=== PATIENT | male | born 1945 | race Caucasian/White ===

== ENCOUNTER → 2016-09-27 | Outpatient (CLI) | payer OTHER ==
[~2016-09-27] VITALS: Ht 172.7 cm; Wt 111.0 kg
[~2016-09-27] MED LIST: FLOMAX 0.40.4 MG/CAP PO; HCTZ 25MG TAB25 MG PO; MOBIC15 MG PO
== END ==
LOC: COL.CARD 10:01
DX: Z53.9 Procedure and treatment not carried out, unspecified reason (principal)

== ENCOUNTER → 2016-10-04 | Outpatient (CLI) | payer OTHER ==
[~2016-10-04] VITALS: Ht 172.7 cm; Wt 114.0 kg
[2016-10-04 07:25] VITALS: BP 155/87; PULSE 52
[2016-10-04 09:00] VITALS: BP 148/66; PULSE 51
[2016-10-04 09:03] VITALS: BP 1711/69; PULSE 73
[2016-10-04 09:05] VITALS: BP 156/83; PULSE 71
[2016-10-04 09:06] VITALS: BP 143/79; PULSE 66
== END ==
LOC: COL.CARD 07:11
DX: R07.89 Other chest pain (principal); R06.09 Other forms of dyspnea; F17.200 Nicotine dependence, unspecified, uncomplicated
CPT/HCPCS: A9502; J2785

== ENCOUNTER 2019-06-02 05:33 | Day surgery (SDC) | payer MEDICARE ==
[~2019-06-02] VITALS: Ht 172.7 cm; Wt 112.8 kg
[2019-06-02] VITALS (13 sets, daily range): BP systolic 119–177; BP diastolic 70–92; PULSE 48–54; TEMP 97.1
[~2019-06-02 05:33] MED LIST changes: +ASPIRIN 81M81 MG/TA2 PO; +BRILINTA90 MG PO; +IMDUR 30MG30 MG/TAB PO; +LIPITOR 80MG80 MG PO; +NITROSTAT0.4 MG/TAB SL; +NORVASC 5MG5 MG/TAB PO; +PRINZIDE 12.5 M1 TA1 PO; +PROTONIX 40MG T40 MG PO
[2019-06-02 06:38] LABS: HEMOGLOBIN 14.8 g/dl (13.5-18.0); MEAN CELL VOLUME 88 fl (80.0-100.0); MEAN CORPUSCULAR HEMOGLOBIN 30 pg (27.0-31.0); MEAN CORPUSCULAR HGB CONC 34 g/dl (33.0-37.0); MEAN PLATELET VOLUME 9.8 fl (7.4-10.4); PLATELET COUNT 230 K/mm3 (130-400)
[2019-06-02] MEDS ORDERED: LIPITOR 80MG80 MG PO (06:38)
[2019-06-02] MEDS ORDERED: IMDUR 30MG30 MG/TAB PO (06:39)
[2019-06-02] MEDS ORDERED: K-DUR20 MEQ PO (06:40)
[2019-06-02] MEDS ORDERED: LOPRESSOR 550 MG/TAB PO (06:41)
[2019-06-02] MEDS ORDERED: SENNA-LAX8.6 MG PO (06:42)
[2019-06-02] MEDS ORDERED: LASIX 40MG TABL40 MG PO (06:42)
[2019-06-02 06:51] LABS: INR 1.1 (0.8-3.0); PROTHROMBIN TIME 12.5 SECONDS (9.7-12.8)
[2019-06-02 06:53] LABS: CREATININE, serum 0.71 (0.66-1.25); POTASSIUM 4.6 mmol/L (3.4-5.0)
--- NOTE | 2019-06-02 07:33 | NUR ---
Initial visit; Patient and his thanked Consumer Analyst for looking in on Vin, offering encouragement and prayer prior to his surgical procedure.
--- NOTE | 2019-06-02 08:47 | NUR ---
SEE MERGE DOCUMENTATION FOR MEDICATION ADMINISTRATION TIMES AND INTRA/POST PROCEDURE SEDATION ASSESSMENTS.
[2019-06-02] MEDS ORDERED: NORVASC 5MG5 MG/TAB PO (09:49)
[2019-06-02] MEDS ORDERED: ZEBETA 5MG5 MG PO (09:50)
--- NOTE | 2019-06-02 10:00 | NUR ---
PT back from supervisor laboratory animal facility, bs report received from Sohan COLON. Pt accompanied by and grandaulolater. pt is awake and alert, p,w,d, appears sinus philipp 40's on monitor. pulses intact, groin soft, no hematoma. wctm
[2019-06-02] MEDS ORDERED: PLAVIX 75MG TAB75 MG PO (11:43)
--- NOTE | 2019-06-02 11:48 | NUR ---
PT WAS ABLE TO USE URINAL BY ROLLING TO RIGHT SIDE. PT DOES HAVE SOME RESIDUAL BLOOD FROM PROCEDURE BTW HIS LEGS, THIS WAS CLEANED UP. GROIN REMAINS SOFT, DRESSING CLEAN AND DRY, PULSES REMAIN INTACT.
--- NOTE | 2019-06-02 15:00 | NUR ---
REVIEWED DC, F/U AND RX INSTRUCTIONS WITH PATIENT AND , AND DAUGHTER OVER THE PAST HOUR. THEY VERBALIZE UNDERSTANDING OF INSTRUCTIONS. PT IS AMBULATORY IN ROOM WITH STEADY GAIT, ABLE TO DRINK FLUIDS WITH NO PROBLEM, NO TROUBLE VOIDING. GROIN REMAINS SOFT WITHOUT BLEEDING, BRUISING OR HEMATOMA. CMS TO EXTREMITIES IS UNCHANGED. SALINE LOCK TO LFA DC'D CATH INTACT. ESCORTED PT TO EXIT VIA WHEELCHAIR.
== END 2019-06-02 15:15 | disposition home or self-care (01) ==
LOC: COL.CAR 05:33
PROVIDERS: Internal Medicine Cardiovascular Disease
DX: I25.10 Atherosclerotic heart disease of native coronary artery without angina pectoris (principal); I10 Essential (primary) hypertension; J44.9 Chronic obstructive pulmonary disease, unspecified; E78.5 Hyperlipidemia, unspecified; Z95.1 Presence of aortocoronary bypass graft; G47.33 Obstructive sleep apnea (adult) (pediatric); E66.9 Obesity, unspecified; Z90.49 Acquired absence of other specified parts of digestive tract; Z79.02 Long term (current) use of antithrombotics/antiplatelets; Z79.82 Long term (current) use of aspirin; Z87.891 Personal history of nicotine dependence; Z82.49 Family history of ischemic heart disease and other diseases of the circulatory system; Z91.030 Bee allergy status
CPT/HCPCS: C1760; C1894; J1644; J2250; J3010; Q9967

== ENCOUNTER → 2019-10-05 | Outpatient (CLI) | payer MEDICARE ==
[~2019-10-05] MED LIST changes: +K-DUR20 MEQ PO; +LASIX 40MG TABL40 MG PO; +LOPRESSOR 550 MG/TAB PO; +PLAVIX 75MG TAB75 MG PO; +SENNA-LAX8.6 MG PO; +ZEBETA 5MG5 MG PO
== END ==
LOC: COL.RAD 12:25
DX: R07.89 Other chest pain (principal); Z90.49 Acquired absence of other specified parts of digestive tract; Z98.890 Other specified postprocedural states

== ENCOUNTER 2020-11-15 07:51 | Day surgery (SDC) | payer MEDICARE ==
[~2020-11-15] VITALS: Ht 172.7 cm; Wt 123.5 kg
[2020-11-15] VITALS (413 sets, daily range): BP systolic 109–138; BP diastolic 43–72; PULSE 42–48; TEMP 97.6–98; O2SAT 80–100
[~2020-11-15 07:51] MED LIST changes: +IMDUR 60MG60 MG/TAB PO
[2020-11-15 09:05] LABS: HEMATOCRIT 42.3 % (42.0-52.0); HEMOGLOBIN 14.6 g/dl (13.5-18.0); MEAN CELL VOLUME 88 fl (80.0-100.0); MEAN CORPUSCULAR HEMOGLOBIN 30 pg (27.0-31.0); MEAN CORPUSCULAR HGB CONC 35 g/dl (33.0-37.0); MEAN PLATELET VOLUME 9.2 fl (7.4-10.4); PLATELET COUNT 193 K/mm3 (130-400); REDCELL DISTRIBUTION WIDTH-CV 13.5 % (11.5-14.5)
[2020-11-15 09:12] LABS: INR 1.1 (0.8-3.0); PROTHROMBIN TIME 12.7 SECONDS (9.7-12.8)
[2020-11-15 09:14] LABS: PARTIAL THROMBOPLASTIN TIME 33.8 SECONDS (26.0-37.0)
[2020-11-15 09:15] LABS: CREATININE, serum 0.78 (0.66-1.25); POTASSIUM 4.2 mmol/L (3.4-5.0)
[2020-11-15] MEDS ORDERED: ZEBETA 5MG5 MG PO (09:27)
[2020-11-15] MEDS ORDERED: RANEXA 500MG T500 MG PO (09:29)
[2020-11-15] MEDS ORDERED: MIRALAX PA17 GM/Dose PO (09:29)
--- NOTE | 2020-11-15 11:14 | NUR ---
RECEIVED REPORT FROM DARLENE STARR IN VICE PRESIDENT OF ENGINEERING. AWAITING ARRIVAL OF PT TO ICU 2.
--- NOTE | 2020-11-15 11:18 | NUR ---
PT ARRIVES TO ICU 2. PLACED ON BEDSIDE CONTINUOUS MONITOR. PT DENIES ANY CP/PRESSURE. CALL LIGHT EDUCATION GIVEN, VERBALIZED UNDERSTANDING. EXPLAINED TO PT ABOU TFLAT TIME, VERBALIZED UNDERSTANDING.RT FEMORAL GROIN SITE WITH GAUZE AND TEGADERM DRESSING, C/D/I. AT BEDSIDE. PT ON RA. VSS.
--- NOTE | 2020-11-15 20:15 | NUR ---
RECEIVED REPORT FROM DARLENE PLAZA. PT RESTING COMFORTABLY IN BED WITH EYES OPEN. CALL LIGHT WITHIN REACH. VSS. IV IN PLACE WITH 1/2 NS RUNNING.
[2020-11-16] VITALS (263 sets, daily range): BP systolic 102–118; BP diastolic 61–65; PULSE 48–50; TEMP 97; O2SAT 80–98
[2020-11-16 05:24] LABS: BASO % 0.5 % (0.0-2.0); EOS # 0.1 (0.0-0.7); EOS % 1.7 % (0-4.0); GRAN % 66.2 % (42.2-75.2); HEMOGLOBIN 14.8 g/dl (13.5-18.0); LYMPH # 1.3 (1.2-3.4); LYMPH % 20.9 % (20.0-51.0); MEAN CELL VOLUME 88 fl (80.0-100.0); MEAN CORPUSCULAR HEMOGLOBIN 30 pg (27.0-31.0); MEAN CORPUSCULAR HGB CONC 34 g/dl (33.0-37.0); MEAN PLATELET VOLUME 9.5 fl (7.4-10.4); MONO # 0.6 (0.1-0.6); MONO % 10.4 % (1.7-9.3); PLATELET COUNT 182 K/mm3 (130-400); RED BLOOD COUNT 4.89 M/mm3 (4.20-5.60); REDCELL DISTRIBUTION WIDTH-CV 13.3 % (11.5-14.5)
[2020-11-16 05:34] LABS: CALCIUM 8.5 mg/dL (8.4-10.2); CREATININE, serum 0.81 (0.66-1.25); POTASSIUM 4.1 mmol/L (3.4-5.0)
--- NOTE | 2020-11-16 09:49 | NUR ---
Initial visit; Patient and his thanked Child Welfare Caseworker for looking in on him this morning and wishing him well and offering God's blessings.
--- NOTE | 2020-11-16 11:55 | NUR ---
DISCHARGE INFORMATION, PACKET AND FOLLOW UP APPTS REVIEWED WITH PATIENT AND HIS . ALL QUESTIONS REVIEWED. POST CATH INSTRUCTIONS REVEIEWED. THEY BOTH VERBALIZE UNDERSTANDING. PATIENT TAKEN OUT TO PATIENT ENTRANCE AND ASSISTED INTO VEHICLE WITH HIS TO DRIVE THEM HOME.
--- NOTE | 2020-11-16 13:03 | NUR ---
The patient discharged before this Tire Trucker could complete intake.
== END 2020-11-16 11:45 | disposition home or self-care (01) ==
LOC: COL.CAR 07:51 → ICU 11:20 → COL.CAR 11:20 → ICU 11-16 11:45 → COL.CAR 11-16 11:45
PROVIDERS: Internal Medicine Cardiovascular Disease
DX: I25.10 Atherosclerotic heart disease of native coronary artery without angina pectoris (principal); I10 Essential (primary) hypertension; J44.9 Chronic obstructive pulmonary disease, unspecified; G47.33 Obstructive sleep apnea (adult) (pediatric); C76.0 Malignant neoplasm of head, face and neck; E66.9 Obesity, unspecified; Z68.41 Body mass index [BMI] 40.0-44.9, adult; Z20.822 Contact with and (suspected) exposure to COVID-19; Z87.891 Personal history of nicotine dependence; Z95.1 Presence of aortocoronary bypass graft; Z80.0 Family history of malignant neoplasm of digestive organs; Z79.899 Other long term (current) drug therapy
CPT/HCPCS: OP; C1725; C1760; C1769; C1876; C1887; C1894; J0583; J1644; J2250; J2405; J3010

== ENCOUNTER 2020-12-26 12:15 | Emergency (ER) | payer MEDICARE ==
[~2020-12-26] VITALS: Ht 172.7 cm; Wt 123.2 kg
[~2020-12-26 12:15] MED LIST changes: +MIRALAX PA17 GM/Dose PO; +RANEXA 500MG T500 MG PO
[2020-12-26 12:27] VITALS: TEMP 98.3
[2020-12-26 14:00] VITALS: BP 118/74; PULSE 78
== END 2020-12-26 14:00 | disposition home or self-care (01) ==
LOC: COL.ER 12:15
DX: M25.561 Pain in right knee (principal); M17.12 Unilateral primary osteoarthritis, left knee; E11.9 Type 2 diabetes mellitus without complications; I10 Essential (primary) hypertension; I25.10 Atherosclerotic heart disease of native coronary artery without angina pectoris; J44.9 Chronic obstructive pulmonary disease, unspecified; Z87.891 Personal history of nicotine dependence; Z79.82 Long term (current) use of aspirin; Z79.02 Long term (current) use of antithrombotics/antiplatelets

== ENCOUNTER 2021-08-28 09:09 | Day surgery (SDC) | payer MEDICARE ==
[2021-08-28] VITALS (12 sets, daily range): BP systolic 101–128; BP diastolic 59–73; PULSE 46–53; TEMP 97.8
[~2021-08-28] VITALS: Ht 172.8 cm; Wt 114.6 kg
[2021-08-28 09:56] LABS: BASO % 0.5 % (0.0-2.0); EOS # 0.1 K/mm3 (0.0-0.7); EOS % 1.9 % (0.0-4.0); GRAN # 4.2 K/mm3 (1.4-6.5); GRAN % 64.9 % (42.2-75.2); HEMATOCRIT 43.1 % (42.0-52.0); HEMOGLOBIN 14.7 g/dl (13.5-18.0); LYMPH # 1.5 K/mm3 (1.2-3.4); LYMPH % 22.9 % (20.0-51.0); MEAN CELL VOLUME 91 fl (80.0-100.0); MEAN CORPUSCULAR HEMOGLOBIN 31 pg (27-31); MEAN CORPUSCULAR HGB CONC 34 g/dl (33.0-37.0); MEAN PLATELET VOLUME 9.1 fl (7.4-10.4); MONO # 0.6 K/mm3 (0.1-0.6); MONO % 9.5 % (1.7-9.3); PLATELET COUNT 236 K/mm3 (130-400); RED BLOOD COUNT 4.75 M/mm3 (4.20-5.60); REDCELL DISTRIBUTION WIDTH-CV 12.9 % (11.5-14.5)
[2021-08-28 10:08] LABS: INR 1.2 (0.8-3.0); PROTHROMBIN TIME 13.5 SECONDS (9.7-12.8)
[2021-08-28 10:11] LABS: PARTIAL THROMBOPLASTIN TIME 31.2 SECONDS (26.0-37.0)
[2021-08-28 10:14] LABS: CALCIUM 9.3 mg/dL (8.4-10.2); CREATININE, serum 0.81 mg/dL (0.72-1.25); POTASSIUM 4.7 mmol/L (3.5-4.5)
[2021-08-28] MEDS ORDERED: PROAIR HFA0.09 MG/AC IH (10:39)
[2021-08-28] MEDS ORDERED: GOOD NEIGH3.4 GM/Dos PO (10:40)
[2021-08-28] MEDS ORDERED: CRESTOR20 MG PO (10:42)
[2021-08-28] MEDS ORDERED: RANEXA 500MG T500 MG PO (10:42)
[2021-08-28] MEDS ORDERED: SENNA-LAX8.6 MG PO (10:43)
[2021-08-28] MEDS ORDERED: ALLI60 MG PO (10:43)
--- NOTE | 2021-08-28 10:47 | NUR ---
SEE MERGE DOCUMENTATION FOR MEDICATION ADMINISTRATION TIMES AND INTRA/POST PROCEDURE SEDATION ASSESSMENTS.
--- NOTE | 2021-08-28 10:57 | NUR ---
Initial visit; Patient and his thanked Pug Machine Operator for looking in on him and offering comfort and prayer prior to his surgical procedure.
[2021-08-28 15:59] LABS: COLLECTION METHOD CLEAN CATCH
[2021-08-28 16:10] LABS: MUCOUS Present (NOT PRESENT); PH 6 (5-8); SQUAMOUS EPITHELIAL 0-2 /hpf (0-10); URINE APPEARANCE Clear (CLEAR/HAZY); URINE BACTERIA None Seen /hpf (NONE SEEN); URINE BILIRUBIN Negative (NEGATIVE); URINE BLOOD Negative (NEGATIVE); URINE COLOR Yellow (YELLOW); URINE GLUCOSE Negative (NEGATIVE); URINE KETONE Negative (NEGATIVE); URINE LEUKOCYTE ESTERASE Negative (NEGATIVE); URINE NITRATE Negative (NEGATIVE); URINE PROTEIN(semi-quant) Negative (NEGATIVE); URINE RBC 0-2 /hpf (0-2); URINE WBC 0-2 /hpf (0-2)
--- NOTE | 2021-08-28 16:20 | NUR ---
DC instructions were reviewed with pt and . Both expressed understanding. Pt was assisted up to restroom following 4 hr flat time. Dressing to rt groin remains clean, dry and intact and area is soft to palpation after activity. UA collected per orders. CXR also completed as ordered by pt's PCP prior to discharge. He is steady on feet in room. INT DC'd with catheter intact. He is assisted out to 's truck by wheelchair with personal belongings.
== END 2021-08-28 16:50 | disposition home or self-care (01) ==
LOC: COL.CAR 09:09
PROVIDERS: Internal Medicine Cardiovascular Disease
DX: I25.110 Atherosclerotic heart disease of native coronary artery with unstable angina pectoris (principal); I10 Essential (primary) hypertension; G47.33 Obstructive sleep apnea (adult) (pediatric); Z95.1 Presence of aortocoronary bypass graft; Z95.818 Presence of other cardiac implants and grafts
CPT/HCPCS: C1760; C1769; C1894; J1644; J2250; J3010; Q9967

== ENCOUNTER 2021-09-30 17:58 | Emergency (ER) | payer MEDICARE ==
[~2021-09-30] VITALS: Ht 172.7 cm; Wt 118.2 kg
[~2021-09-30 17:58] MED LIST changes: +ALLI60 MG PO; +CRESTOR20 MG PO; +GOOD NEIGH3.4 GM/Dos PO; +PROAIR HFA0.09 MG/AC IH
[2021-09-30 18:12] VITALS: TEMP 98.5
[2021-09-30 19:21] LABS: CALCIUM 8.9 mg/dL (8.4-10.2); CREATININE, serum 0.71 mg/dL (0.72-1.25); POTASSIUM 4.1 mmol/L (3.5-4.5)
[2021-09-30] MEDS ORDERED: PEPCID 20MG TAB20 MG PO (20:05)
[2021-09-30 20:06] VITALS: BP 149/82; PULSE 70
== END 2021-09-30 20:06 | disposition home or self-care (01) ==
LOC: COL.ER 17:58
PROVIDERS: Emergency Medicine
DX: R22.42 Localized swelling, mass and lump, left lower limb (principal); R10.13 Epigastric pain; E11.9 Type 2 diabetes mellitus without complications; I25.10 Atherosclerotic heart disease of native coronary artery without angina pectoris; J44.9 Chronic obstructive pulmonary disease, unspecified; Z79.82 Long term (current) use of aspirin; Z79.02 Long term (current) use of antithrombotics/antiplatelets; Z79.899 Other long term (current) drug therapy
CPT/HCPCS: J1650

== ENCOUNTER 2021-09-30 21:44 | Outpatient (CLI) | payer MEDICARE ==
[~2021-09-30 21:44] MED LIST changes: +PEPCID 20MG TAB20 MG PO
[2021-10-01 17:30] VITALS: BP 127/67; PULSE 71; TEMP 98.4
== END 2021-10-01 ==
LOC: EUO 10-01 17:21
DX: M79.605 Pain in left leg (principal); M79.89 Other specified soft tissue disorders; Z96.652 Presence of left artificial knee joint
CPT/HCPCS: J1650

== ENCOUNTER → 2021-10-02 | Outpatient (CLI) | payer MEDICARE | LOC: COL.VAS 08:19 | DX: M79.89 Other specified soft tissue disorders (principal); M79.605 Pain in left leg ==

== ENCOUNTER 2022-10-06 13:35 | Inpatient (IN) | payer MEDICARE ==
[~2022-10-06] VITALS: Ht 172.7 cm; Wt 112.0 kg
[2022-10-06 14:17] LABS: BASO % 0.2 % (0.0-2.0); EOS % 0.1 % (0.0-4.0); GRAN # 5.5 K/mm3 (1.4-6.5); GRAN % 66.7 % (42.2-75.2); HEMATOCRIT 50.5 % (42.0-52.0); HEMOGLOBIN 17.6 g/dl (13.5-18.0); LYMPH # 1.4 K/mm3 (1.2-3.4); LYMPH % 16.7 % (20.0-51.0); MEAN CELL VOLUME 88 fl (80.0-100.0); MEAN CORPUSCULAR HEMOGLOBIN 31 pg (27-31); MEAN CORPUSCULAR HGB CONC 35 g/dl (33.0-37.0); MEAN PLATELET VOLUME 9.4 fl (7.4-10.4); MONO # 1.3 K/mm3 (0.1-0.6); MONO % 15.9 % (1.7-9.3); PLATELET COUNT 253 K/mm3 (130-400); RED BLOOD COUNT 5.73 M/mm3 (4.20-5.60); REDCELL DISTRIBUTION WIDTH-CV 13.2 % (11.5-14.5)
[2022-10-06 14:36] LABS: ALBUMIN 4.6 gm/dL (3.4-4.8); BILIRUBIN,TOTAL 1.7 mg/dL (0.2-1.2); C-REACTIVE PROTEIN 4.44 mg/dL (0.00-0.50); CALCIUM 9.9 mg/dL (8.4-10.2); CREATININE, serum 0.94 mg/dL (0.72-1.25); POTASSIUM 3.8 mmol/L (3.5-4.5); TOTAL PROTEIN 8.1 gm/dL (6.2-8.1)
[2022-10-06 15:20] LABS: COLLECTION METHOD CLEAN CATCH
[2022-10-06 15:25] LABS: URINE APPEARANCE Clear (CLEAR/HAZY); URINE COLOR Yellow (YELLOW); URINE GLUCOSE Negative (NEGATIVE); URINE PROTEIN(semi-quant) 2+ (NEGATIVE)
[2022-10-06 15:26] LABS: URINE BLOOD Negative (NEGATIVE); URINE KETONE 1+ (NEGATIVE); URINE NITRATE Negative (NEGATIVE)
[2022-10-06 15:34] LABS: MUCOUS Present (NOT PRESENT); URINE BACTERIA None Seen /hpf (NONE SEEN)
[2022-10-06 17:23] VITALS: BP 131/75; PULSE 82; TEMP 98
[2022-10-06] MEDS ORDERED: TYLENOL 325MG325 MG PO (18:02)
[2022-10-06] MEDS ORDERED: FOLIC ACID 11 MG/TA1 PO (18:04)
[2022-10-06] MEDS ORDERED: FERRO-TIME325 MG PO (18:04)
[2022-10-06] MEDS ORDERED: VITAMIN C500 MG PO (18:06)
--- NOTE | 2022-10-06 19:30 | NUR ---
PT IN BED, IS ALERT AND ORIENTED X4. HAS NGT TO RT NARE TO LIS. CLEARISH FLUID IN TUBING. ABD DISTENDED, SOFT, BS HYPOACTIVE. PT DENIES NAUSEA OR PAIN. REPORTS MINIMAL FLATUS. ASSISTED TO BATHROOM, THOUGHT HE NEEDED TO HAVE BM, NO SUCCESS, DID VOID YELLOW URINE. BACK TO BED.
[2022-10-06 19:47] VITALS: BP 154/69; PULSE 84; TEMP 97.7
--- NOTE | 2022-10-06 20:55 | NUR ---
PT REPORTS HE NORMALLY SLEEPS IN A RECLINER AT HOME. ASSISTED TO CHAIR AT BEDSIDE. REPORTS MILD NAUSEA, ZOFRAN GIVEN IV. HAS IVF INFUSING TO RT HAND WITHOUT REDNESS OR SWELLING. CALL LIGHT WITHIN REACH.
--- NOTE | 2022-10-06 23:02 | NUR ---
PT ASKING FOR SOMETHING FOR SLEEP. HES MILDLY UNCOMFORTABLE. DANA KELLOGG ORDERS ONE DOSE OF MORPHINE 2MG, GIVEN AT THIS TIME.
[2022-10-07] VITALS (7 sets, daily range): BP systolic 148–176; BP diastolic 56–85; PULSE 78–96; TEMP 98.1–99.6
--- NOTE | 2022-10-07 03:09 | NUR ---
PT REPORTS MORE ABD PAIN AND NAUSEA, MORPHINE 2MG IVP AND ZOFRAN 4MG IVP GIVEN. PT CURRENTLY IN BED.
--- NOTE | 2022-10-07 06:00 | NUR ---
PT HAS 100CC GREEN EMESIS, RECHECKED NGT PLACEMENT AND CONFIRMED. ASSISTED TO BATHROOM, VOIDS AND BACK TO BED.
[2022-10-07 06:37] LABS: BASO % 0.1 % (0.0-2.0); EOS % 0.1 % (0.0-4.0); GRAN # 5.2 K/mm3 (1.4-6.5); GRAN % 64.1 % (42.2-75.2); HEMOGLOBIN 17.4 g/dl (13.5-18.0); LYMPH # 1.6 K/mm3 (1.2-3.4); MEAN CELL VOLUME 92 fl (80.0-100.0); MEAN CORPUSCULAR HEMOGLOBIN 31 pg (27-31); MEAN CORPUSCULAR HGB CONC 34 g/dl (33.0-37.0); MEAN PLATELET VOLUME 9.4 fl (7.4-10.4); MONO # 1.3 K/mm3 (0.1-0.6); MONO % 15.5 % (1.7-9.3); PLATELET COUNT 221 K/mm3 (130-400); RED BLOOD COUNT 5.68 M/mm3 (4.20-5.60); REDCELL DISTRIBUTION WIDTH-CV 13.5 % (11.5-14.5)
[2022-10-07 06:49] LABS: CALCIUM 9.1 mg/dL (8.4-10.2); CREATININE, serum 0.81 mg/dL (0.72-1.25); POTASSIUM 3.5 mmol/L (3.5-4.5)
--- NOTE | 2022-10-07 07:00 | NUR ---
PT RESTING IN BED. NG TO LIS. PT HAS IVF RUNNING. PT HAS CALL LIGHT WITHIN REACH AND INSTRUCTED TO CALL WTIH ALL NEEDS.
--- NOTE | 2022-10-07 10:39 | NUR ---
SW met with pt to complete intake. Pt reports he lives at home with his , Apurva @ [phone]. Pt reports he is independnet on all ADLS and has CPAP for night. He reports he not complaint with it every night. PCP is [place] and gets medications from [facility]. Pt report she has DPOA-HC and its his . He reports filling one out before his heart surgery. No other needs at this time. SW to await for further recommendations and follow up as needed. DC: Home.
--- NOTE | 2022-10-07 16:40 | NUR ---
1550 PT COMPLAINING OF HICCUPS. PT INSTRUCTED PROBABLY DUE TO NG TUBE. SIPS OF WATER GIVEN AND ZOFRAN GIVEN. 1640 PT COMPLAINING AGAIN OF HICCUPS. CALLED AND NOTIFIED. NO NEW ORDERS RECEIVED.
--- NOTE | 2022-10-07 21:30 | NUR ---
PATIENT IS RESTING IN BED.PATIENT'S IS IN THE ROOM.PATIENT HAS A NASO GASTRIC TUBE ON LOW INTERMITTENT SUCTION.PATIENT DENIES PAIN.PATIENT AND REPORT TO THIS NURSE THAT PATIENT HAD A MODERATE BOWEL MOVEMENT WHICH WAS LOOSE AND SMELLY .THIS NURSE DID NOT SEE IT.PATIENT IS ON IV FLUIDS INFUSING WELL.SAFETY MEASURES IN PLACE.NO OTHER NEEDS AT THIS TIME.
[2022-10-08] VITALS (7 sets, daily range): BP systolic 143–169; BP diastolic 65–80; PULSE 72–85; TEMP 97.6–98.6
--- NOTE | 2022-10-08 03:40 | NUR ---
PATIENT HAD A LARGE BOWEL MOVEMENT.PATIENT DENIES PAIN.PATIENT WANTS TO DRINK AND EAT.PATIENT'S IS IN THE ROOM.NASOGASTRIC TUBE IS ON LOW INTERMITTENT SUCTION THERE IS NO DRAINAGE IN THE CANISTER ITS ID FLUCTUATING IN THE TUBING.
[2022-10-08 06:26] LABS: BASO % 0.4 % (0.0-2.0); EOS % 0.8 % (0.0-4.0); GRAN # 2.9 K/mm3 (1.4-6.5); GRAN % 61.2 % (42.2-75.2); HEMATOCRIT 45.5 % (42.0-52.0); LYMPH # 0.9 K/mm3 (1.2-3.4); LYMPH % 19.4 % (20.0-51.0); MEAN CELL VOLUME 92 fl (80.0-100.0); MEAN CORPUSCULAR HEMOGLOBIN 31 pg (27-31); MEAN CORPUSCULAR HGB CONC 33 g/dl (33.0-37.0); MEAN PLATELET VOLUME 9.8 fl (7.4-10.4); MONO # 0.9 K/mm3 (0.1-0.6); PLATELET COUNT 192 K/mm3 (130-400); RED BLOOD COUNT 4.96 M/mm3 (4.20-5.60); REDCELL DISTRIBUTION WIDTH-CV 13.3 % (11.5-14.5)
[2022-10-08 06:41] LABS: HEMOGLOBIN 15.2 g/dl (13.5-18.0)
[2022-10-08 06:43] LABS: CALCIUM 8.6 mg/dL (8.4-10.2); CREATININE, serum 0.78 mg/dL (0.72-1.25); POTASSIUM 3.3 mmol/L (3.5-4.5)
--- NOTE | 2022-10-08 07:27 | NUR ---
NG TUBE CLAMPED PER ORDERS. SCANT AMT OF DRAINAGE TO CANNISTER THIS AM. PT SITTING UP ON SIDE OF BED VISITING WITH . INSTRUCTION PROVIDED ON ORDERING CLEAR LIQUIDS FOR PT.
--- NOTE | 2022-10-08 08:58 | NUR ---
PT UP TO RECLINER, ADVANCING TO MACHELLE, WILL REVALUATELATER THIS AM TO DC NG TUBE. CURRENTLY CLAMPED.PT LEFT AND WILL RETURN LATER THIS AM.
--- NOTE | 2022-10-08 09:52 | NUR ---
PT HAD EPISODE OF EMESIS. RESTARTED NG TUBE TO LIS. PT NOW NPO AGAIN.
--- NOTE | 2022-10-08 10:34 | NUR ---
AFTER EMESIS AND REATTACHED NG TO; LIS PT HAS SM AMT OF DRAINAGE TO NG CANNISTER. PT REPORTS FEELING SLIGHTLY BETTER.
--- NOTE | 2022-10-08 12:29 | NUR ---
Owner Oral Surgeon spoke with Hospitalist about ordering PT/OT.
--- NOTE | 2022-10-08 16:00 | NUR ---
FLUSHED AND ADVANCED NG TUBE WITH IMMEDIATE RETURN OF 1200 MLS GREEN FLUID. PT REPORTING RELIFE. HOLDING GG PER CARLO GONZALEZ.
--- NOTE | 2022-10-08 21:20 | NUR ---
pt asleep in bed, at bedside. assessment complete. pt denies passing gas and has not had a bm this shift. hypoactive bowel sounds. ng to LIS w green output. vss and tele in place. ns infusing at 75ml/hr in right hand. call light in reach. no needs at this time.
--- NOTE | 2022-10-08 22:56 | NUR ---
NG has had green output of 500cc since 1900. pt denies pain, and nausea/vomiting.
--- NOTE | 2022-10-08 23:17 | NUR ---
spoke to christofer randolph radiology about dr telles's note stating he would like a gastrograffin test this afternoon and follow up with a KUB in the morning. christofer states that we will wait until the morning when a radiologist is in the building.
[2022-10-09] VITALS (12 sets, daily range): BP systolic 102–171; BP diastolic 53–76; PULSE 66–94; TEMP 97.7–98.3
--- NOTE | 2022-10-09 05:45 | NUR ---
a total of 1300cc green output in canister since 190 last night. pt reports feeling "less full". pt felt like he needed to have a bm but was only able to pass gas. denies nausea/vomiting but has occasional hiccups. pt really wanting NG taken out and to be able to drink water and walk the halls. no other needs this morning.
[2022-10-09 09:13] LABS: BASO % 0.2 % (0.0-2.0); EOS % 0.5 % (0.0-4.0); GRAN % 61.3 % (42.2-75.2); HEMATOCRIT 48.3 % (42.0-52.0); HEMOGLOBIN 16.3 g/dl (13.5-18.0); LYMPH # 1.4 K/mm3 (1.2-3.4); MEAN CELL VOLUME 90 fl (80.0-100.0); MEAN CORPUSCULAR HEMOGLOBIN 31 pg (27-31); MEAN CORPUSCULAR HGB CONC 34 g/dl (33.0-37.0); MEAN PLATELET VOLUME 9.4 fl (7.4-10.4); MONO # 1.1 K/mm3 (0.1-0.6); MONO % 16.7 % (1.7-9.3); PLATELET COUNT 235 K/mm3 (130-400); RED BLOOD COUNT 5.34 M/mm3 (4.20-5.60)
[2022-10-09 09:33] LABS: ALBUMIN 3.6 gm/dL (3.4-4.8); CALCIUM 9.3 mg/dL (8.4-10.2); CREATININE, serum 0.8 mg/dL (0.72-1.25); MAGNESIUM 2.2 mg/dL (1.6-2.6); POTASSIUM 3.1 mmol/L (3.5-4.5); TOTAL PROTEIN 6.8 gm/dL (6.2-8.1)
--- NOTE | 2022-10-09 11:19 | NUR ---
Management Lead met with patient and to review discharge plan. Patient plans to go home at time of discharge. PT/OT ordered. Patient to have another procedure today. Discharge Plan: Home
--- NOTE | 2022-10-09 11:45 | NUR ---
PT TO SURGERY AT THIS TIME BY BED WITH JULIANNA.
--- NOTE | 2022-10-09 15:19 | NUR ---
PT TO ROOM 342 PER BED WITH REPORT FROM SLAVA COLON PACU @5858. PT IS A/O X4, LUNGS CTA, BOWEL SOUNDS HYPO. 3 LAP SITES TO LEFT LATERAL ABD CDI WITH SWIFTSET. IV TO PUMP PER ORDERS. NG TUBE TO LIS, GUTHRIE TO DD WITH CLEAR YELLOW URINE PRESENT.
--- NOTE | 2022-10-09 20:00 | NUR ---
Patient A/Ox4, head to toe assessment done, see shift assessment, denies pain at this time, NG to LIS, with schroeder catheter draining well, 3 abdominal lap sites, NPO maintained, denies further needs, call light and personal items within reach, will continue to monitor.
--- NOTE | 2022-10-09 23:38 | NUR ---
Patient watching TV, denies pain or discomfort, NPO maintained, denies further needs, will continue to monitor.
[2022-10-10 03:21] VITALS: BP 141/65; PULSE 60; TEMP 98
[2022-10-10 06:59] LABS: BASO % 0.3 % (0.0-2.0); GRAN # 5.6 K/mm3 (1.4-6.5); GRAN % 75.9 % (42.2-75.2); HEMATOCRIT 48.5 % (42.0-52.0); HEMOGLOBIN 16.7 g/dl (13.5-18.0); LYMPH # 1.1 K/mm3 (1.2-3.4); LYMPH % 14.4 % (20.0-51.0); MEAN CELL VOLUME 89 fl (80.0-100.0); MEAN CORPUSCULAR HEMOGLOBIN 31 pg (27-31); MEAN CORPUSCULAR HGB CONC 34 g/dl (33.0-37.0); MEAN PLATELET VOLUME 9.7 fl (7.4-10.4); MONO # 0.7 K/mm3 (0.1-0.6); PLATELET COUNT 269 K/mm3 (130-400); RED BLOOD COUNT 5.47 M/mm3 (4.20-5.60); REDCELL DISTRIBUTION WIDTH-CV 12.6 % (11.5-14.5)
[2022-10-10 07:10] VITALS: BP 163/72; PULSE 75; TEMP 97.8
[2022-10-10 07:16] LABS: CALCIUM 8.7 mg/dL (8.4-10.2); CREATININE, serum 0.72 mg/dL (0.72-1.25); POTASSIUM 3.8 mmol/L (3.5-4.5)
--- NOTE | 2022-10-10 09:00 | NUR ---
Pt doing okay this morning. Informed him that once Dr Raza comes around, we will see about getting him is routine medications. Pt not having much for complaints of pain. Pts is at bedside. Discussed multiple times about him being NPO at this time
[2022-10-10 10:56] VITALS: BP 152/69; PULSE 65; TEMP 98.2
--- NOTE | 2022-10-10 13:33 | NUR ---
Pt tolerating the clear liquids, taking them slow, only giving him about 120ml at a time. Pt has been up walking in the halls a couple times.
--- NOTE | 2022-10-10 13:38 | NUR ---
Broadcast Engineer attended clinical rounds with the team. Patient is up walking in the halls. Discharge Plan: Home
--- NOTE | 2022-10-10 15:07 | NUR ---
Pt has been up ambulating several times. Pt doing well and is steady on his feet. Pt has become more distended, reports feeling bloated. NG hooked back up to LIS at this time. Informed pt not to have any more liquids for now. Pt reports that he has not passed any gas since about 0500. Approximately 350mg out, light brown in color
[2022-10-10 16:18] VITALS: BP 128/62; PULSE 64; TEMP 97.7
[2022-10-10 19:13] VITALS: BP 137/71; PULSE 62; TEMP 97.7
--- NOTE | 2022-10-10 21:00 | NUR ---
Patient assessed around 2100, A/O, complained that his hungry and hasn't eaten for a week, at bedside, reminded that he can't have anything for now but he keeps insisting that this nurse can't take the glass of tea on his table, said "he will not drink all of it", he will drink just a little bit to help soothe his throat, will continue to monitor, reports he passed gas, NG tube to LIS draining 600ml of greenish drainage at this time, denies further needs, call light and personal items within reach, will continue to monitor.
[2022-10-10 23:43] VITALS: BP 159/66; PULSE 62; TEMP 98.8
[2022-10-11] VITALS (7 sets, daily range): BP systolic 81–137; BP diastolic 48–83; PULSE 54–72; TEMP 97.8–98.4
--- NOTE | 2022-10-11 00:25 | NUR ---
Patient resting in bed, eyes closed, at bedside, drained 1150ml of greenish drainage out of the canister, IV still running at 60cc/hr, call light and personal items within reach, will continue to monitor.
[2022-10-11 07:22] LABS: BASO % 0.5 % (0.0-2.0); EOS # 0.1 K/mm3 (0.0-0.7); EOS % 1.2 % (0.0-4.0); GRAN # 3.9 K/mm3 (1.4-6.5); GRAN % 59.7 % (42.2-75.2); HEMATOCRIT 47.3 % (42.0-52.0); HEMOGLOBIN 16.3 g/dl (13.5-18.0); LYMPH # 1.7 K/mm3 (1.2-3.4); LYMPH % 25.9 % (20.0-51.0); MEAN CELL VOLUME 89 fl (80.0-100.0); MEAN CORPUSCULAR HEMOGLOBIN 31 pg (27-31); MEAN CORPUSCULAR HGB CONC 35 g/dl (33.0-37.0); MEAN PLATELET VOLUME 9.6 fl (7.4-10.4); MONO # 0.8 K/mm3 (0.1-0.6); MONO % 12.2 % (1.7-9.3); PLATELET COUNT 237 K/mm3 (130-400); RED BLOOD COUNT 5.33 M/mm3 (4.20-5.60)
[2022-10-11 08:05] LABS: CREATININE, serum 0.79 mg/dL (0.72-1.25)
[2022-10-11 08:13] LABS: POTASSIUM 2.9 mmol/L (3.5-4.5)
--- NOTE | 2022-10-11 08:14 | NUR ---
Notified Dr Myers of critical potassium
--- NOTE | 2022-10-11 09:09 | NUR ---
Pt continues to have output from NG tube. Clamped NG tube so that he could go for a walk and morning medications given. Pt having complaints of sore throat. Pt also stated that he has continued to have liquid bowel movements. stayed the night and stated that she did not think that he had been up to have bowel movement. Having pt use incentive spirometer as he is having some upper lobe expir wheezes. Pt not having complaints of pain and does move well.
--- NOTE | 2022-10-11 11:28 | NUR ---
Pt was resting in bed. Dr Raza in recently going over plan of care. pt continues to ask for food, and again explained to him that we have to give his bowels time to wake up. Potassium started per order. Pt was complaining of it burning. Changed settings so that fluids ran concurrently with potassium. Left room, at bedside. Shortly after, came out saying pt passed out. Pt was laying side ways in bed, but was awake. Assisted him to sitting position. Pt was clammy. Pt kept stating that his arm hurt so bad that it caused him to pass out. Pt was a little clammy, BP is low. Pt started feeling better and was then assisted to the restroom. Pt ambulated well with no problems. Assisted him back to bed and stated that he needed to use call light when he needs to get to the restroom.
--- NOTE | 2022-10-11 12:34 | NUR ---
Pt continues to complain about his arm hurting, pt getting very grouchy and rolling his eyes when I explain why he is getting it. Pt becoming very demanding. trying to reason with him.
--- NOTE | 2022-10-11 13:00 | NUR ---
Pt refusing any more potassium through his IV. Tried to educated on the pill form vs effervescent. Discussed with pharmacy and CALEB Long. Mentioned having a PICC line placed. Order entered and [facility]IVS notified.
--- NOTE | 2022-10-11 13:48 | NUR ---
Natacha RN in with pt discussing PICC line. Pt at bedside
--- NOTE | 2022-10-11 14:32 | NUR ---
Picc line placed to right upper arm.
--- NOTE | 2022-10-11 15:30 | NUR ---
Pt tolerating potassium through PICC line. No questions. Offered some clear liquids, pt stated he only wanted ice chips.
--- NOTE | 2022-10-11 16:30 | NUR ---
Pt resting with eyes closed, even non labored breathing, at bedside
--- NOTE | 2022-10-11 16:53 | NUR ---
Pt. called and reported that his NG tube "just fell out". Dr. Raza notified. OK to leave out at this time. IF starts vomiting place new tube.
--- NOTE | 2022-10-11 22:00 | NUR ---
Patient assessed around 2200, A/O, at bedside, denies pain, nausea or vomiting, reports he has been passing gas, PICC line to right upper arm, with 3 abdominal lap sites edges well approximated, denies further needs, call light and personal items within reach, will continue to monitor.
--- NOTE | 2022-10-12 00:51 | NUR ---
Patient resting in a recliner, eyes closed, at bedside.
--- NOTE | 2022-10-12 01:19 | NUR ---
Patient reports he had large loose BM, returned back to bed, IV potassium given at this time as per protocol, denies abdominal pain, nausea and vomiting, will continue to monitor.
[2022-10-12 03:38] VITALS: BP 124/60; PULSE 58; TEMP 97.6
[2022-10-12 06:15] LABS: BASO % 0.5 % (0.0-2.0); EOS # 0.1 K/mm3 (0.0-0.7); EOS % 1.2 % (0.0-4.0); GRAN # 3.5 K/mm3 (1.4-6.5); GRAN % 58.5 % (42.2-75.2); HEMATOCRIT 42.2 % (42.0-52.0); HEMOGLOBIN 14.6 g/dl (13.5-18.0); LYMPH # 1.5 K/mm3 (1.2-3.4); LYMPH % 24.8 % (20.0-51.0); MEAN CELL VOLUME 89 fl (80.0-100.0); MEAN CORPUSCULAR HEMOGLOBIN 31 pg (27-31); MEAN CORPUSCULAR HGB CONC 35 g/dl (33.0-37.0); MEAN PLATELET VOLUME 9.7 fl (7.4-10.4); MONO # 0.9 K/mm3 (0.1-0.6); MONO % 14.2 % (1.7-9.3); PLATELET COUNT 223 K/mm3 (130-400); RED BLOOD COUNT 4.73 M/mm3 (4.20-5.60)
[2022-10-12 06:38] LABS: CALCIUM 8.8 mg/dL (8.4-10.2); CREATININE, serum 0.75 mg/dL (0.72-1.25); MAGNESIUM 2.1 mg/dL (1.6-2.6); POTASSIUM 3.8 mmol/L (3.5-4.5)
[2022-10-12 07:45] VITALS: BP 142/68; PULSE 57; TEMP 97.8
--- NOTE | 2022-10-12 08:30 | NUR ---
Pt doing okay this morning. Stated that he has been passing gas and did have bowel movements through the night. Pts continues to be at bedside. Pt was demanding food or he would be leaving this hospital. Discussed with Dr Raza who did discuss diet with pt and advanced him to low fiber. Pt continues to be independent in the room and ambulates in the halls.
--- NOTE | 2022-10-12 08:50 | NUR ---
Educated pt to take eating slow. Pt nodded, stated she would assist with ordering
--- NOTE | 2022-10-12 09:47 | NUR ---
Pt ate scrambed egg, sausage, cream of wheat nad part of a pancake for breakfast. Encouraged him to continue to walk often. Pt is currently on the phone sitting up in chair
--- NOTE | 2022-10-12 10:55 | NUR ---
Cable Armorer Operator attended clinical rounds with the team and patient may be ready for discharge over the weekend. SW met with patient and his to check in. SW presented IM form to patient who verbalized understanding and provided signature. SW placed form in chart and provided copy to patient. Discharge Plan: Home
[2022-10-12 12:00] VITALS: BP 123/57; PULSE 63; TEMP 97.9
--- NOTE | 2022-10-12 13:00 | NUR ---
Pt doing okay, abd does seem more distended. Active bowel sounds. Encouraged pt to go for another walk. Pt just recently got out of the shower. Pt has not had bowel movement yet during my shift
[2022-10-12 15:40] VITALS: BP 132/77; PULSE 72; TEMP 98.7
--- NOTE | 2022-10-12 18:30 | NUR ---
THE PATIENT IS SITTING IN THE RECLINER AT THIS TIME. STATES THAT HE HAS SOME PRESSURE IN THE ABD, HAS BEEN PASSING GAS, AND HIS BM'S ARE "NOTHING TO BRAG ABOUT." NO OTHER CONCERNS AT THIS TIME, WILL CONTINUE TO MONITOR.
[2022-10-12 19:32] VITALS: BP 135/59; PULSE 71; TEMP 97.8
[2022-10-12 23:24] VITALS: BP 135/68; PULSE 58; TEMP 98
[2022-10-13 03:42] VITALS: BP 130/77; PULSE 65; TEMP 97.9
[2022-10-13 04:36] LABS: BASO % 0.6 % (0.0-2.0); EOS # 0.1 K/mm3 (0.0-0.7); EOS % 1.5 % (0.0-4.0); GRAN # 4.5 K/mm3 (1.4-6.5); GRAN % 62.8 % (42.2-75.2); HEMATOCRIT 44.5 % (42.0-52.0); HEMOGLOBIN 15.2 g/dl (13.5-18.0); LYMPH # 1.7 K/mm3 (1.2-3.4); LYMPH % 23.8 % (20.0-51.0); MEAN CELL VOLUME 91 fl (80.0-100.0); MEAN CORPUSCULAR HEMOGLOBIN 31 pg (27-31); MEAN CORPUSCULAR HGB CONC 34 g/dl (33.0-37.0); MEAN PLATELET VOLUME 9.8 fl (7.4-10.4); MONO # 0.8 K/mm3 (0.1-0.6); MONO % 10.6 % (1.7-9.3); PLATELET COUNT 210 K/mm3 (130-400); RED BLOOD COUNT 4.91 M/mm3 (4.20-5.60); REDCELL DISTRIBUTION WIDTH-CV 13.1 % (11.5-14.5)
[2022-10-13 04:46] LABS: CALCIUM 8.7 mg/dL (8.4-10.2); CREATININE, serum 0.74 mg/dL (0.72-1.25); POTASSIUM 3.7 mmol/L (3.5-4.5)
[2022-10-13 08:04] VITALS: BP 128/66; PULSE 66; TEMP 97.7
[2022-10-13 12:31] VITALS: BP 141/72; PULSE 67; TEMP 98.1
--- NOTE | 2022-10-13 17:45 | NUR ---
PATIENT DISCHARGED THIS AFTERNOON. PICC LINE REMOVED.
== END 2022-10-13 17:46 | disposition home or self-care (01) | DRG 336 ==
LOC: COL.ER 13:35 → SURG 15:32
PROVIDERS: Nurse Practitioner; Physician Assistant; Surgery; ADMIT Student in an Organized Health Care Education/Training Program
PROC: 0DN84ZZ Release Small Intestine, Percutaneous Endoscopic Approach (ICD-10-PCS; principal; 2022-10-09 12:30)
PROC: 0DJ08ZZ Inspection of Upper Intestinal Tract, Via Natural or Artificial Opening Endoscopic (ICD-10-PCS; 2022-10-09 12:30)
PROC: 02HV33Z Insertion of Infusion Device into Superior Vena Cava, Percutaneous Approach (ICD-10-PCS; 2022-10-11)
DX: K56.50 Intestinal adhesions [bands], unspecified as to partial versus complete obstruction (principal); K91.89 Other postprocedural complications and disorders of digestive system; I25.10 Atherosclerotic heart disease of native coronary artery without angina pectoris; K56.7 Ileus, unspecified; E87.6 Hypokalemia; J44.9 Chronic obstructive pulmonary disease, unspecified; F10.90 Alcohol use, unspecified, uncomplicated; E66.9 Obesity, unspecified; G47.33 Obstructive sleep apnea (adult) (pediatric); I11.0 Hypertensive heart disease with heart failure; I50.9 Heart failure, unspecified; E78.5 Hyperlipidemia, unspecified; K59.09 Other constipation; Z79.82 Long term (current) use of aspirin; Z95.1 Presence of aortocoronary bypass graft; Z95.5 Presence of coronary angioplasty implant and graft; Z87.891 Personal history of nicotine dependence; Z79.02 Long term (current) use of antithrombotics/antiplatelets; Z91.030 Bee allergy status; Z23 Encounter for immunization; Z68.39 Body mass index [BMI] 39.0-39.9, adult
CPT/HCPCS: A4314; C1751; J0330; J0690; J1100; J1650; J2270; J2405; J2704; J3010; J3360; J3480; J7030; Q9963; Q9967

== ENCOUNTER 2023-12-24 06:50 | Day surgery (SDC) | payer MEDICARE ==
[~2023-12-24] VITALS: Ht 170.3 cm; Wt 114.1 kg
[2023-12-24] VITALS (201 sets, daily range): BP systolic 111–157; BP diastolic 62–90; PULSE 52–62; TEMP 97.5; O2SAT 74–97
[~2023-12-24 06:50] MED LIST changes: +CEPHALEXIN500 M1 PO; +FERRO-TIME325 MG PO; +FOLIC ACID 11 MG/TA1 PO; +IRON TABLETS325 MG PO; +LEADER CLE17 GM/Dose PO; +PERCOCET 325 MG1 TA2 PO; +TYLENOL 325MG325 MG PO; +VITAMIN C500 MG PO
[2023-12-24] MEDS ORDERED: 1/2 NS 1,000 ML IV SCH (07:15)
[2023-12-24] MEDS ORDERED: DULCOLAX TAB5 MG PO (08:02)
[2023-12-24] MEDS ORDERED: METAMUCIL3.4 GM/DOS PO (08:04)
[2023-12-24] MEDS ORDERED: BENADRYL25 M2 PO (08:05)
[2023-12-24] MEDS ORDERED: TYLENOL 325MG325 MG PO (08:05)
[2023-12-24] MEDS ORDERED: VOLTAREN GEL 1%1 TU TP (08:12)
[2023-12-24 08:18] LABS: HEMATOCRIT 46.5 % (42.0-52.0); MEAN CELL VOLUME 88 fl (80.0-100.0); MEAN CORPUSCULAR HEMOGLOBIN 30 pg (27-31); MEAN CORPUSCULAR HGB CONC 34 g/dl (33.0-37.0); PLATELET COUNT 242 K/mm3 (130-400); REDCELL DISTRIBUTION WIDTH-CV 12.9 % (11.5-14.5)
[2023-12-24 08:22] LABS: INR 1.1 (0.8-3.0); PROTHROMBIN TIME 12.1 SECONDS (9.7-12.8)
[2023-12-24 08:24] LABS: PARTIAL THROMBOPLASTIN TIME 32.6 SECONDS (26.0-37.0)
[2023-12-24 08:39] LABS: CALCIUM 9.5 mg/dL (8.4-10.2); CREATININE, serum 0.81 mg/dL (0.72-1.25); POTASSIUM 4.6 mEq/L (3.5-4.5)
--- NOTE | 2023-12-24 09:06 | NUR ---
Pt to procedure,report to Vinicio Curry.
--- NOTE | 2023-12-24 09:25 | NUR ---
SEE MERGE FOR PROCEDURE DOCUMENTATION
[2023-12-24] MEDS ORDERED: fentaNYL 50 MCG/ML 2 ML VIAL IV SCH (09:56)
[2023-12-24] MEDS ORDERED: Midazolam 2 MG/2 ML VIAL IV SCH (09:56)
--- NOTE | 2023-12-24 10:22 | NUR ---
Pt returned from procedure,report from DARLENE Curry.Right groin dressing observed clean,dry, and soft to touch.No bleeding observed at site.
--- NOTE | 2023-12-24 10:25 | NUR ---
PATIENT ALERT AND ORIENTED, DENIES CHEST PAIN OR NAUSEA. PATIENT TRANSFERRED VIA SLIDE BOARD TO BED. FEMORAL SITE ASSESSED, REMAINS CDI AND SOFT TO PALPATION. PATIENT TRANSFERRED TO [facility] VIA BED, FAMILY BROUGHT TO BEDSIDE. PLAN OF CARE REVIEWED. VITAL SIGNS TAKEN, VSS. BEDSIDE REPORT TO DARLENE TIDWELL. CALL LIGHT PLACED WITHIN REACH, BED IN LOWEST POSITION AND HOB TO 30 DEGREES, X3 BEDRAILS IN PLACE.
--- NOTE | 2023-12-24 15:20 | NUR ---
Discharge instructions given to pt.pt verbalizes understanding.Dressing to right groin observed clean,dry,intact and soft to touch.Pt escorted out via wheelchair by this nurse.
== END 2023-12-24 15:36 ==
LOC: COL.CAR 06:50
PROVIDERS: Internal Medicine Cardiovascular Disease
DX: I25.10 Atherosclerotic heart disease of native coronary artery without angina pectoris (principal); E66.9 Obesity, unspecified; I10 Essential (primary) hypertension; E78.5 Hyperlipidemia, unspecified; G47.33 Obstructive sleep apnea (adult) (pediatric); Z99.81 Dependence on supplemental oxygen; Z87.891 Personal history of nicotine dependence; Z95.5 Presence of coronary angioplasty implant and graft; Z68.41 Body mass index [BMI] 40.0-44.9, adult; Z79.899 Other long term (current) drug therapy
CPT/HCPCS: C1760; C1894; J1644; J2250; J3010